=== PATIENT | female | born 1950 | race Caucasian/White ===

== ENCOUNTER 2017-02-03 12:23 | Observation (INO) | payer MEDICARE ==
[~2017-02-03] VITALS: Ht 170.2 cm; Wt 82.0 kg
--- NOTE | 2017-02-03 12:23 | NUR ---
PT TO ROOM 13 VIA STRETCHER. ERIC. TALKATIVE. SKIN WDI. CAP REFILL BRISK. NO N/V AT THIS TIME. RESP EVEN AND UNLABORED.
[2017-02-03 12:35] LABS: HEMATOCRIT 44.6 % (37.0-47.0); HEMOGLOBIN 14.9 g/dl (12.0-16.0); IMMATURE GRANULOCYTES 0.3 % (0.0-1.0); MEAN CELL VOLUME 91.8 fL CALC (80.0-100.0); MEAN CORPUSCULAR HGB 30.7 pG CALC (26.0-32.0); MEAN CORPUSCULAR HGB CONC 33.4 g/L CALC (32.0-36.0); NEUT# 12.36 thou/uL (2.00-7.15); RED BLOOD COUNT 4.86 mill/uL (4.20-5.60); RED CELL DISTRI WIDTH 13.5 % (11.5-15.5)
[2017-02-03] MEDS ORDERED: PAXIL40 MG PO (12:49)
[2017-02-03] MEDS ORDERED: OMEPRAZOLE10 MG PO (12:51)
[2017-02-03] MEDS ORDERED: NEURONTIN100 MG PO (12:52)
[2017-02-03] MEDS ORDERED: NEURONTIN300 MG PO (12:52)
[2017-02-03 12:53] LABS: ALBUMIN 4.6 g/dL (3.2-5.0); ALKALINE PHOSPHATASE 64 u/l (38-126); AMYLASE 122 u/l (30-110); ANION GAP 17 (6-22 (CALC)); BILIRUBIN, TOTAL 0.8 mg/dL (0.0-1.4); BUN 14 mg/dL (8-23); BUN/CREATININE RATIO 22 (12-20 (CALC)); CALCIUM 9.2 mg/dL (8.4-10.2); CARBON DIOXIDE 22 mmol/l (22-30); CHLORIDE 107 mmol/l (95-108); CREATININE 0.6 mg/dL (0.5-1.0); GFR > 60 ML/MIN (>=60 (CALC)); GFR FOR AFR.AMER. > 60 ML/MIN (>=60 (CALC)); GLUCOSE 136 mg/dL (82-115); LIPASE 124 u/l (23-300); POTASSIUM 3.8 mmol/l (3.5-5.1); SGOT/AST 27 u/l (9-36); SGPT/ALT 32 u/l (11-66); SODIUM 143 mmol/l (137-146); TOTAL PROTEIN 7.8 g/dL (6.3-8.2)
[2017-02-03] MEDS ORDERED: ZOCOR20 M1 PO (12:53)
[2017-02-03 13:05] LABS: MYOGLOBIN 45 ng/mL (0 - 62)
--- NOTE | 2017-02-03 13:30 | NUR ---
PT RESTING ON STRETCHER. CALLLIGHT WITHINREACH. NO N/V. VSS.
--- NOTE | 2017-02-03 14:04 | NUR ---
IV FLUIDS COMPLETED KVO SITE HEALTHY. SPOKE WITH DR FABIAN PT TO BE ADMITTED FOR OBS. PT AWARE OF POC.
--- NOTE | 2017-02-03 14:41 | NUR ---
REPORT CALLED TO JEFF NURSE ON [facility].
--- NOTE | 2017-02-03 14:44 | NUR ---
PT TO MEDSURG VIA STRETCHER W/TELEMETRY IN PLACE. IV SITE HEALTHY. NO APPARENT DISTRESS.
[2017-02-03 15:05] VITALS: BP 138/60
--- NOTE | 2017-02-03 15:10 | NUR ---
PT ARRIVED FROM ER VIA STRETCHER ACCOMPANIED BY STAFF, IV SITE IS FREE FROM REDNESS OR EDEMA. PT WAS INCONTINENT OF UA WHEN SHE COUGHS.
--- NOTE | 2017-02-03 15:30 | NUR ---
ASSESSMENT IS COMPLETED: IV SITE DRESSING CHANGED DUE TO LOOKING BLOODY, AND LEAKING. CONTINUE TO OBSERVE AND MONTIOR.
--- NOTE | 2017-02-03 18:45 | NUR ---
PT WAS GIVEN TEA, AND NOTICED FACE WAS FLUSHED. CHECKED ON HER TEMP IS 99.[address] FABIAN RE: EPIGASTRIC PAIN AND FEVER OF 99.9. NEW ORDERS GIVEN.
--- NOTE | 2017-02-03 19:00 | NUR ---
REPORT FROM WING AGUILAR. ASSUMED PT. CARE.
--- NOTE | 2017-02-03 19:09 | NUR ---
INFORMED PT RE: MEDICATION AND NURSE COMING IN, VERBALIZED UNDERSTANDING
--- NOTE | 2017-02-03 19:25 | NUR ---
PT. FOUND AWAKE, ALERT, ORIENTED X 3. SKIN WARM AND DRY. AFEBRILE AT THIS TIME. RESPS EVEN AND UNLABORED. PT. C/O 10/10 EPIGASTRIC PAIN THAT RADIATES STRAIGHT THROUGH TO HER BACK. PT. STATES WITH HX OF GERD. PT. UPDATED ON CURRENT LAB RESULTS AND PENDING TESTING TO RULE OUT PA. CALL LIGHT REMAINS WITHIN REACH. WILL CONTINUE TO ASSESS.
[2017-02-03 19:36] VITALS: BP 125/63
--- NOTE | 2017-02-03 21:00 | NUR ---
PT. STATES PAIN LEVEL MUCH IMPROVED AT THIS TIME. 07/31. MEDICATED WITH PM MEDICATIONS. DENIES COMPLAINTS OR NEED AT THIS TIME. CALL LIGHT REMAINS WITHIN REACH. WILL CONTINUE TO MONITOR.
[2017-02-04 00:10] VITALS: BP 99/54
--- NOTE | 2017-02-04 00:14 | NUR ---
LAB AT BEDSIDE AT THIS TIME. REPEAT TROPONIN OBTAINED. PT. RESTING WITH EYES CLOSED. EASILY AROUSABLE. RESPS EVEN AND UNLABORED. DENIES NEEDS AT THIS TIME. CALL LIGHT REMAINS WITHIN REACH. WILL CONTINUE TO MONITOR.
--- NOTE | 2017-02-04 03:53 | NUR ---
PT. CONTINUES TO REST WITH EYES CLOSED. RESPS REMAIN EVEN AND UNLABORED. SKIN WARM AND DRY. CALL LIGHT REMAINS WITHIN REACH. WILL CONTINUE TO ASSESS.
[2017-02-04 04:47] VITALS: BP 115/64
[2017-02-04 06:10] LABS: HEMATOCRIT 40.6 % (37.0-47.0); HEMOGLOBIN 13.4 g/dl (12.0-16.0); IMMATURE GRANULOCYTES 0.3 % (0.0-1.0); MEAN CELL VOLUME 92.9 fL CALC (80.0-100.0); MEAN CORPUSCULAR HGB 30.7 pG CALC (26.0-32.0); NEUT# 6.62 thou/uL (2.00-7.15); RED BLOOD COUNT 4.37 mill/uL (4.20-5.60); RED CELL DISTRI WIDTH 13.5 % (11.5-15.5)
[2017-02-04 06:24] LABS: ANION GAP 12 (6-22 (CALC)); BUN 11 mg/dL (8-23); BUN/CREATININE RATIO 15 (12-20 (CALC)); CARBON DIOXIDE 26 mmol/l (22-30); CHLORIDE 107 mmol/l (95-108); CREATININE 0.7 mg/dL (0.5-1.0); GFR > 60 ML/MIN (>=60 (CALC)); GFR FOR AFR.AMER. > 60 ML/MIN (>=60 (CALC)); GLUCOSE 117 mg/dL (82-115); POTASSIUM 3.7 mmol/l (3.5-5.1); SODIUM 141 mmol/l (137-146)
--- NOTE | 2017-02-04 07:05 | NUR ---
REPORT RECEIVED FROM NIGHT NURSE. PT.IN BED W/LIGHTS OUT SLEEPING AT THIS TIME. CALL LIGHT AND BST W/IN REACH
[2017-02-04 08:05] VITALS: BP 11/42
[2017-02-04] MEDS ORDERED: PANTOPRAZOLE SO40 M1 PO (10:07)
[2017-02-04 11:05] LABS: URINE BILIRUBIN - DIPSTICK NEGATIVE (NEGATIVE); URINE BLOOD DIPSTICK TRACE-INTACT (NEGATIVE); URINE CLARITY CLEAR; URINE COLOR YELLOW; URINE GLUCOSE - DIPSTICK NEGATIVE (NEGATIVE); URINE KETONE NEGATIVE (NEGATIVE); URINE NITRITE - DIPSTICK NEGATIVE (Negative); URINE PH 5.5 (4.5-8.0); URINE PROTEIN - DIPSTICK NEGATIVE (NEG-TRACE)
[2017-02-04 11:16] LABS: URINE LEUK ESTERASE SMALL (NEGATIVE)
[2017-02-04 11:17] LABS: URINE BACTERIA RARE hpf; URINE SQUAMOUS EPITHELIAL CELL FEW EPI/hpf (0-FEW)
--- NOTE | 2017-02-04 11:30 | NUR ---
PT.OFF THE FLOOR DISCHARGED TO HOME IN GOOD CONDITION. PT.AMBULATED SELF ACCOMPANIED BY DAUGHTER. IV HAS BEEN REMOVED INTACT/SITE APPEARS HEALTHY, S[employer] ALSO REMOVED.
== END 2017-02-04 11:39 | disposition home or self-care (01) ==
LOC: ED 12:23 → ED-I 12:47 → ED 14:02 → MS2 14:03
PROVIDERS: Emergency Medicine; ADMIT Internal Medicine; ATTEND Internal Medicine
PROC: 3E0234Z Introduction of Serum, Toxoid and Vaccine into Muscle, Percutaneous Approach (ICD-10-PCS; principal; 2017-02-04)
DX: R07.89 Other chest pain (principal); E78.5 Hyperlipidemia, unspecified; M79.7 Fibromyalgia; K21.9 Gastro-esophageal reflux disease without esophagitis; Z80.0 Family history of malignant neoplasm of digestive organs; Z23 Encounter for immunization
CPT/HCPCS: S0164

== ENCOUNTER 2022-07-12 17:01 | Emergency (ER) | payer MEDICARE ==
[~2022-07-12] VITALS: Ht 170.2 cm; Wt 73.4 kg
[~2022-07-12 17:01] MED LIST: NEURONTIN100 MG PO; NEURONTIN300 MG PO; OMEPRAZOLE10 MG PO; PANTOPRAZOLE SO40 M1 PO; PAXIL40 MG PO; ZOCOR20 M1 PO
[2022-07-12] MEDS ORDERED: METOPROL TAR25 MG PO (17:47)
[2022-07-12] MEDS ORDERED: BACLOFEN10 MG PO (17:49)
[2022-07-12] MEDS ORDERED: MEMANTINE HYDROC5 MG PO (17:49)
[2022-07-12] MEDS ORDERED: HYDROCO/APAP1 T10 PO (17:50)
[2022-07-12 19:09] LABS: BASO% 0.5 % (0-3); EOS% 2.2 % (0-8); HEMOGLOBIN 14.8 g/dl (12.0-16.0); IMMATURE GRANULOCYTES 0.1 % (0.0-5.0); LYMPH% 26.3 % (15-41); MEAN CELL VOLUME 94.9 fL CALC (80.0-100.0); MEAN CORPUSCULAR HGB 30.1 pG CALC (26.0-32.0); MEAN CORPUSCULAR HGB CONC 31.8 g/dL CAL (32.0-36.0); MONO% 7.7 % (2-13); NEUT# 6.51 thou/uL (2.00-7.15); NEUT% 63.2 % (42-76); RED BLOOD COUNT 4.91 mill/uL (4.20-5.60)
[2022-07-12 19:12] LABS: HEMATOCRIT 46.6 % (37.0-47.0)
[2022-07-12 19:28] LABS: ALBUMIN 4.6 g/dL (3.2-5.0); ALKALINE PHOSPHATASE 80 u/l (38-126); ANION GAP 13 (6-22 (CALC)); BUN 16 mg/dL (8-23); BUN/CREATININE RATIO 24 (12-20 (CALC)); C-REACTIVE PROTEIN 0.6 mg/dL (0-0.9); CARBON DIOXIDE 28 mmol/l (22-30); CHLORIDE 104 mmol/l (95-108); CREATININE 0.7 mg/dL (0.5-1.0); GFR FOR AFR.AMER. > 60 ML/MIN (>=60 (CALC)); GFR OTHER RACES > 60 ML/MIN (>=60 (CALC)); POTASSIUM 3.8 mmol/l (3.5-5.1); SGOT/AST 30 u/l (9-36); SODIUM 141 mmol/l (137-146); TOTAL PROTEIN 8.1 g/dL (6.3-8.2)
[2022-07-12 19:29] LABS: BILIRUBIN, TOTAL 0.3 mg/dL (0.02-1.3)
[2022-07-12] MEDS ORDERED: PERCOCET 5/321 COMBO PO (20:32)
[2022-07-12] MEDS ORDERED: TORADOL PO (20:32)
[2022-07-12 21:25] VITALS: BP 155/73
== END 2022-07-12 21:26 | disposition home or self-care (01) ==
LOC: ED 17:01
PROVIDERS: Emergency Medicine
DX: S39.012A Strain of muscle, fascia and tendon of lower back, initial encounter (principal); X58.XXXA Exposure to other specified factors, initial encounter